=== PATIENT | female | born 1960 | race African-American/Black ===

== ENCOUNTER 2016-08-25 16:51 | Emergency (ER) | payer MEDICARE, SELFPAY ==
[2016-08-25] MEDS ORDERED: Sodium Chloride 0.9% 1,000 ML BAG ONE (17:00)
[2016-08-25] MEDS ORDERED: Ketorolac Tromethamine 30 MG/ML VIAL ONE (17:27)
[2016-08-25] MEDS ORDERED: Ondansetron HCl/PF 4 MG/2 ML Vial ONE (17:27)
[2016-08-25 17:50] LABS: #Basophils 0.1 thou/uL (0.0-0.2); #Monocytes 0.5 thou/uL (0.11-0.59); #Neutrophils 8.3 thou/uL (1.40-6.50); %Basophils 0.5 % (0.0-1.0); %Eosinophils 0.1 % (0.0-10.0); %Monocytes 4.9 % (0.0-10.0); %Neutrophils 76.5 % (42.0-75.0); Hemoglobin 13.1 g/dL (12.0-16.0); Mean Corpuscular HGB CONC 31.8 g/dL (32.0-36.0); Mean Corpuscular Hemoglobin 27.8 pg (27.0-31.0); Mean Corpuscular Volume 87.6 fl (81.0-99.0); Mean Platelet Volume 8.5 fL (7.4-10.4); Platelet Count 308 thou/uL (130-400); RBC Distribution Width 13.6 % (11.5-14.5); Red Blood Cell (RBC) Count 4.69 mill/uL (4.20-5.40); White Blood Cell (WBC) Count 10.8 thou/uL (4.8-10.8)
[2016-08-25 18:12] LABS: Troponin I Less than 0.010 ng/mL (< 0.028)
[2016-08-25 18:13] LABS: ALT (SGPT) 24 U/L (0-55); AST (SGOT) 31 U/L (5-34); Albumin 4.8 g/dL (3.5-5.0); Alkaline Phosphatase 78 U/L (40-150); Anion Gap 18 mmol/L (10-20); BUN (Urea Nitrogen) 6 mg/dL (9.8-20.1); Bilirubin, Total 0.5 mg/dL (0.2-1.2); Calc. Creatinine Clearance 0 mL/min (70-130); Calcium 10.1 mg/dL (7.8-10.44); Carbon Dioxide 23 mmol/L (22-29); Chloride 105 mmol/L (98-107); Estimated GFR-MDRD Greater than 90; Globulin 3.5 g/dL (2.4-3.5); Glucose 105 mg/dL (70-105); Lipase 14 U/L (8-78); Potassium 3.9 mmol/L (3.5-5.1); Protein, Total 8.3 g/dL (6.0-8.3); Sodium 142 mmol/L (136-145)
[2016-08-25 18:40] LABS: Bilirubin Negative (Negative); Blood, Urine Trace (Negative); Clarity Clear (Clear); Glucose, Urine (Dipstick) Negative (Negative); Leukocyte Negative (Negative); Nitrite Negative (Negative); Protein, Urine (Dipstick) Negative (Neg-Trace); Specific Gravity, Urine 1.015 (1.005-1.030); Urobilinogen 0.2 mg/dL (0.2-1.0); pH, Urine 8.5 (5.0-9.0)
[2016-08-25 18:45] LABS: Bacteria/HPF None Seen HPF (None Seen); RBC/HPF 0-3 HPF (0-3); Squamous Epithelial 0-3 HPF (0-3); WBC/HPF 0-3 HPF (0-3)
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
--- NOTE | 2016-08-25 19:48 | RAD ---
CHEST ONE VIEW 08/25/16 HISTORY: Chest pain. COMPARISON: 06/22/16 FINDINGS: The cardiac silhouette is magnified by projection. Pulmonary vasculature is unremarkable. Mediastin um is midline. Scarring at the left lateral lung base is similar in appearance to the prior study. N umerous metallic villatoro projecting over the mid and right lower chest are similar in appearance to t he prior study. IMPRESSION: Chronic type findings appear stable. No active cardiopulmonary abnormalities are demonstrated. POS: [facility]
== END 2016-08-25 19:15 | disposition home or self-care (01) ==
LOC: MADERS 16:51
DX: K52.9 Noninfective gastroenteritis and colitis, unspecified (principal)
CPT/HCPCS: 36415; 74022; 80053; 81003; 81015; 82553; 83690; 84484; 85025; 93005; 96361; 96374; 96375; J1885; J2405; J7050

== ENCOUNTER 2016-09-06 17:01 | Emergency (ER) | payer MEDICARE ==
[2016-09-06] MEDS ORDERED: Ketorolac Tromethamine 60 MG/2 ML VIAL ONE (18:09)
== END 2016-09-06 18:15 | disposition home or self-care (01) ==
LOC: MADERS 17:01
DX: R10.12 Left upper quadrant pain (principal); Z79.899 Other long term (current) drug therapy
CPT/HCPCS: 96372; J1885

== ENCOUNTER 2018-01-02 19:55 | Emergency (ER) | payer MEDICARE ==
[2018-01-02] MEDS ORDERED: Ketorolac Tromethamine 60 MG/2 ML VIAL ONE (21:12)
== END 2018-01-02 21:30 | disposition home or self-care (01) ==
LOC: MADERS 19:55
DX: S30.1XXA Contusion of abdominal wall, initial encounter (principal); Z79.899 Other long term (current) drug therapy; W55.12XA Struck by horse, initial encounter
CPT/HCPCS: 96372; J1885